=== PATIENT | female | born 1955 | race Caucasian/White ===

== ENCOUNTER → 2023-06-07 12:10 | Day surgery (SDC) | payer MEDICARE, SELFPAY ==
--- NOTE | 2023-06-04 14:18 | HO.ANESPROP2 ---
Documented by User: Megan Black NP 06/04/23 14:18 HPI - Anesthesia Eval Consult details Narrative: 67yo F for Colonoscopy [facility] Past Medical History Medical History (Updated 06/04/23 @ 14:07 by Bianca Whitman RN) Arthritis Diabetes HTN (hypertension) Hyperlipidemia Mild asthma Surgical History Surgical History (Updated 06/04/23 @ 14:07 by Bianca Whitman RN) H/O knee surgery Hx laparoscopic cholecystectomy Social History Social History Patient Tobacco Use Status: Never used Tobacco Second Hand Smoke Exposure: No Use of substances other than those prescribed or required for medical reasons: No Are you DNR?: No Advance Directives: No Advance Directives Information Provided: Yes Advance Directives on File: No Meds Allergies Allergy/AdvReac Type Severity Reaction Status Date / Time povidone-iodine Allergy Unknown SKIN BURN Verified 06/07/23 12:45 [From BETADINE] soap [From BETADINE] Allergy Unknown SKIN BURN Verified 06/07/23 12:45 sulfamethoxazole Allergy Unknown HIVES/RASH Verified 06/07/23 12:45 [From BACTRIM] trimethoprim [From BACTRIM] Allergy Unknown HIVES/RASH Verified 06/07/23 12:45 Home Medications Medication Instructions Recorded Confirmed Last Taken Type Aspir-81 81 mg PO DAILY 06/04/23 06/07/23 05/31/23 History albuterol sulfate 90 mcg/actuation 2 puff inhalation Q6H PRN wheezing 06/04/23 06/04/23 Unknown History aerosol inhaler amlodipine 10 mg tablet 10 mg PO DAILY 06/04/23 06/04/23 06/07/23 10:00 History lisinopril 20 mg tablet 20 mg PO DAILY 06/04/23 06/04/23 06/07/23 10:00 History simvastatin 10 mg tablet 10 mg PO BEDTIME 06/04/23 06/04/23 Unknown History Exam Exam Date and Time: June 04, [id number] Assessment and Plan Assessment Anesthesia Assessment: Chart Reviewed Documented by User: Mohini Salguero MD 06/07/23 14:52 [facility] Past Medical History Medical History (Updated 06/04/23 @ 14:07 by Bianca Whitman RN) Arthritis Diabetes HTN (hypertension) Hyperlipidemia Mild asthma Family History Family history of problems with anesthesia: No Surgical History Surgical History (Updated 06/04/23 @ 14:07 by Bianca Whimtan RN) H/O knee surgery Hx laparoscopic cholecystectomy History of Problems with Anesthesia: No Social History Social History Patient Tobacco Use Status: Never used Tobacco Second Hand Smoke Exposure: No Use of substances other than those prescribed or required for medical reasons: No Are you DNR?: No Advance Directives: No Advance Directives Information Provided: Yes Advance Directives on File: No Meds Allergies Allergy/AdvReac Type Severity Reaction Status Date / Time povidone-iodine Allergy Unknown SKIN BURN Verified 06/07/23 12:45 [From BETADINE] soap [From BETADINE] Allergy Unknown SKIN BURN Verified 06/07/23 12:45 sulfamethoxazole Allergy Unknown HIVES/RASH Verified 06/07/23 12:45 [From BACTRIM] trimethoprim [From BACTRIM] Allergy Unknown HIVES/RASH Verified 06/07/23 12:45 Home Medications Medication Instructions Recorded Confirmed Last Taken Type Aspir-81 81 mg PO DAILY 06/04/23 06/07/23 05/31/23 History albuterol sulfate 90 mcg/actuation 2 puff inhalation Q6H PRN wheezing 06/04/23 06/04/23 Unknown History aerosol inhaler amlodipine 10 mg tablet 10 mg PO DAILY 06/04/23 06/04/23 06/07/23 10:00 History lisinopril 20 mg tablet 20 mg PO DAILY 06/04/23 06/04/23 06/07/23 10:00 History simvastatin 10 mg tablet 10 mg PO BEDTIME 06/04/23 06/04/23 Unknown History Exam Airway Mallampati Class: I TM Dist: >3cm Neck ROM: Full Loose/Missing/Broken Teeth: No Heart: rr Lungs: cta Assessment and Plan Assessment Anesthesia Assessment: Anesthesia Plan Discussed Final Anesthetic Review Family History of Problems with Anesthesia: No History of Problems with Anesthesia: No NPO: Yes ASA Class: II Final Preanesthetic Review: No Changes in Pt Med Stat, Meds/Allgs Chart Reviewed, Consent Obtained/Reviewed and Anes Risks/Benef Reviewed Patient Risk: Low Procedure Risk: Low Anesthetic Plan Anesthetic Plan: MAC: Disposition: Standard PACU
[2023-06-07 12:31] VITALS: BMI 38.8
[2023-06-07 12:38] VITALS: BP 141/73; PULSE 78; RESP 18; TEMP 36.8; O2SAT 95
[2023-06-07] MEDS: Lactated Ringers 1,000 ML 100 ML IVCONT (12:48)
--- NOTE | 2023-06-07 15:08 | PM.OP ---
Brief Operative Note Date of Service: 06/07/23 Pre-op diagnosis: Screening Post-op diagnosis: other (Diverticulosis) Procedure: Colonoscopy to the cecum Surgeon: Carlos Manuel Teague Anesthesia: MAC Was an Environmental Services Floor Tech used for this Procedure?: No Estimated blood loss (mL): 0 Pathology: none sent Condition: stable Disposition: PACU
[2023-06-07 15:09] VITALS: BP 95/64; PULSE 67; RESP 16; TEMP 36.1; O2SAT 98
[2023-06-07 15:24] VITALS: BP 111/56; PULSE 66; RESP 17; TEMP 36.2; O2SAT 97
--- NOTE | 2023-06-08 01:09 | OP_ITS ---
DATE OF SERVICE: 06/07/2023 SURGEON: Carlos Manuel Teague MD INDICATIONS: The patient presents for evaluation of personal history of tubular adenoma of the colon and colorectal cancer screening. Full consent was obtained from her for this, including risks of bleeding and perforation. PREOPERATIVE DIAGNOSIS: POSTOPERATIVE DIAGNOSIS: PROCEDURE PERFORMED: Colonoscopy to the cecum. ESTIMATED BLOOD LOSS: COMPLICATIONS: ANESTHESIA: Monitored anesthesia care. ASSISTANTS: SPECIMENS: PREOPERATIVE DIAGNOSES: Colorectal cancer screening, personal history of tubular adenomas of the colon. POSTOPERATIVE DIAGNOSES: Colorectal cancer screening, personal history of tubular adenomas of the colon, diverticulosis and internal hemorrhoids. DESCRIPTION OF PROCEDURE: The patient was placed in the left lateral decubitus position. The digital rectal exam revealed no abnormalities. The Olympus video pediatric colonoscope was entered into the rectum and advanced easily to the cecum. Once in the cecum, I did identify normal-appearing cecal pouch with appendiceal orifice and a normal-appearing ileocecal valve. The entire cecum and ileocecal valve appeared normal. There was transillumination of light deep in the right lower quadrant. The scope was slowly withdrawn, assessing all mucosal surfaces carefully. Preparation was excellent. I did not visualize any sign of polyps, colitis, nor angiodysplasia. There was a mild amount of sigmoid diverticulosis. In the rectum, scope was retroflexed, visualizing small internal hemorrhoids, but no other pathology. The rectal mucosa appeared normal. The scope was straightened and withdrawn from the patient. She tolerated the procedure well and was returned to recovery area in stable condition. IMPRESSION: 1. Diverticulosis. 2. Internal hemorrhoids. PLAN: I would recommend a repeat colonoscopy in 5 years for further screening and surveillance given her previous history of tubular adenomas of the colon. She will otherwise see me on a p.r.n. basis. She was advised to resume her aspirin today. MD ANN MARIE Maldonado/PAIGE / [id number]
== END | disposition home or self-care (01) ==
PROVIDERS: PCP Internal Medicine; Visit Provider Internal Medicine
PROC: 0DJD8ZZ Inspection of Lower Intestinal Tract, Via Natural or Artificial Opening Endoscopic (ICD-10-PCS; CPT 45378; principal; 2023-06-07 13:40)
DX: Z12.11 Encounter for screening for malignant neoplasm of colon (principal); K57.30 Diverticulosis of large intestine without perforation or abscess without bleeding; K64.8 Other hemorrhoids; Z86.010 Personal history of colon polyps; E11.9 Type 2 diabetes mellitus without complications; I10 Essential (primary) hypertension; E78.5 Hyperlipidemia, unspecified; J45.909 Unspecified asthma, uncomplicated; Z79.899 Other long term (current) drug therapy; Z79.82 Long term (current) use of aspirin
CPT/HCPCS: 45378